=== PATIENT | female | born 1995 | race Caucasian/White ===

== ENCOUNTER 2021-04-29 08:00 | Outpatient (CLI) | payer OTHER ==
[2021-04-29 21:04] LABS: BASOPHILS % (AUTO) 0.5 %; EOSINOPHILS # (AUTO) 0.1 10^3/uL (0.0-0.7); EOSINOPHILS % (AUTO) 0.9 %; HCT - HEMATOCRIT 44.7 % (37.0-47.0); LYMPHOCYTES # (AUTO) 2.3 10^3/uL (1.5-3.5); LYMPHOCYTES % (AUTO) 39.3 %; MEAN CORPUSCULAR HEMOGLOBIN 31.2 pg (27.0-31.0); MEAN CORPUSCULAR HGB CONC 33.6 g/dL (32.0-36.0); MEAN CORPUSCULAR VOLUME 92.9 fL (81.0-99.0); MEAN PLATELET VOLUME 9.7 fL (7.9-10.8); MONOCYTES # (AUTO) 0.5 10^3/uL (0.0-1.0); MONOCYTES % (AUTO) 7.9 %; NEUTROPHILS % (AUTO) 51.2 %; PLT - PLATELET COUNT 324 10^3/uL (130-450); RED BLOOD COUNT 4.81 10^6/uL (4.20-5.40); RED CELL DISTRIBUTION WIDTH 12.4 % (12.0-15.0); WHITE BLOOD COUNT 5.8 x10^3/uL (4.8-10.8)
[2021-04-29 21:13] LABS: CALCIUM 9.3 mg/dL (8.5-10.3); CREATININE 0.8 mg/dL (0.4-1.0); POTASSIUM 3.8 mmol/L (3.5-5.0)
[2021-05-03 14:11] LABS: HSV 1 IGG TYPE SPECIFIC AB <0.90 index; HSV 2 IGG TYPE SPECIFIC AB <0.90 index
== END 2021-04-29 23:59 ==
LOC: LAB.N 08:00
PROVIDERS: ATTEND Physician Assistant
DX: R59.0 Localized enlarged lymph nodes (principal)
CPT/HCPCS: 36415; 80048; 81599; 85025; 86592; 86695; 86696

== ENCOUNTER 2022-10-05 07:04 | Outpatient (CLI) | payer OTHER ==
--- NOTE | 2022-10-05 10:00 | MRI Report ---
PROCEDURE: CERVICAL SPINE WO INDICATIONS: CERVICAL RADICULOPATHY TECHNIQUE: Noncontrast sagittal T1 spin echo and T2 fast spin echo, sagittal STIR, foraminal oblique sagittal T2 fast spin echo, and axial gradient echo or T2 fast spin echo through the cervical spine. COMPARISON: None. FINDINGS: Image quality: Excellent. Alignment and Curvature: There is normal bony alignment. Bone Marrow: Marrow demonstrates normal overall signal. Spinal Cord: Visualized spinal cord has normal size and signal. No cerebellar tonsillar herniation. Paraspinous Soft Tissues: No paravertebral masses. Prevertebral soft tissues are normal in thicknes s. C2-C3: Right facet hypertrophy. No canal stenosis. Mild right foraminal stenosis. C3-C4: No canal stenosis. AP diameter of the canal is 11.1 mm. Bilateral facet hypertrophy, right g reater than left. Mild right uncovertebral joint hypertrophy. Moderate right foraminal narrowing with mild flattening deformity on the exiting right C4 nerve root. C4-C5: No central canal stenosis. AP diameter of the central canal is 10.6 mm. Bilateral facet hyper trophy. No foraminal stenosis. C5-C6: Somewhat congenitally short pedicles. Posterior diffuse disc plus osteophyte. Mild canal sten osis. AP diameter of the canal is 9.4 mm. Bilateral uncovertebral joint hypertrophy, left greater howie n right. Moderate to severe bilateral foraminal narrowing with a degree of bilateral C6 foraminal ner ve root impingement. C6-C7: Somewhat congenitally short pedicles. Borderline canal stenosis. AP diameter of the canal is 9.8 mm. No significant foraminal stenosis. C7-T1: No canal stenosis. Right facet hypertrophy and right uncovertebral joint hypertrophy contribu te to moderate to severe right foraminal narrowing with a mild degree of impingement on the exiting r ight C8 nerve root.. IMPRESSION: 1. There is a degree of underlying congenitally short pedicles. There is multilevel facet arthropathy and there are areas of uncovertebral joint hypertrophy. 2. Canal stenosis is mild at C5-C6 and borderline at C6-C7. 3. At C5-C6 there is moderate to severe bilateral foraminal narrowing and degree of bilateral foramin al C6 nerve root impingement. At C7-T1 there is moderate to severe right foraminal narrowing with a m ild degree of impingement on the exiting C8 nerve root. Comment: Does this patient have symptoms of C6 or C8 radiculopathy? Reviewed by: Philip Cervantes MD on 10/05/2022 9:58 AM PDT Approved by: Philip Cervantes MD on 10/05/2022 9:58 AM PDT Station ID: [id number]
== END 2022-10-05 07:05 | disposition home or self-care (01) ==
LOC: DI 07:04
PROVIDERS: ATTEND Student in an Organized Health Care Education/Training Program
DX: M47.22 Other spondylosis with radiculopathy, cervical region (principal); M48.02 Spinal stenosis, cervical region